=== PATIENT | male | born 1955 | race Caucasian/White ===

== ENCOUNTER 2017-01-18 08:53 | Emergency (ER) | payer OTHER ==
[~2017-01-18] VITALS: Ht 172.7 cm; Wt 73.5 kg
[~2017-01-18 08:53] MED LIST: ANTIVERT12.5 MG PO; APAP500 MG PO; BUSPIRONE HCL10 MG PO; DEC150 PO; ECO81 PO; GABAPENTIN100 M2 PO; LAC PO; LEVAQUIN750 MG PO; LISINOPRIL40 MG PO; METOPROLOL SUCC50 M1 PO; NABUMETONE750 MG PO; NORCO1 TA2 PO; PRA20 PO; SODIUM CHLORIDE1 G2 GT; TEMAZEPAM15 MG PO
[2017-01-18 09:33] LABS: BASOPHIL % 0.4 % (0-2); PLATELET COUNT 253 x10^3mcL (130-400); RED CELL DISTRIBUTION WIDTH 12.7 % (11.5-14.5)
[2017-01-18 09:54] LABS: ALBUMIN 4.1 g/dL (3.4-5.0); ALKALINE PHOSPHATASE 76 U/L (46-116); ALT/SGPT 20 U/L (16-63); AST/SGOT 10 U/L (15-37); CALCIUM 8.6 mg/dL (8.5-10.1); CARBON DIOXIDE 28.4 mmol/L (21-32); CHLORIDE SERUM 90 mmol/L (98-107); CREATININE SERUM 0.9 mg/dL (0.7-1.3); GFR1 > 60 mL/min; GLUCOSE SERUM 115 mg/dL (74-106); SODIUM SERUM 126 mmol/L (136-145); TOTAL PROTEIN, SERUM 7.6 g/dL (6.4-8.2)
[2017-01-18 09:59] LABS: POTASSIUM SERUM 2.7 mmol/L (3.5-5.1)
[2017-01-18 10:10] LABS: AMPHETAMINE QUAL UR NONE DETECTED (NEG <=1000)
[2017-01-18 15:11] LABS: CALCIUM 8.9 mg/dL (8.5-10.1); CARBON DIOXIDE 30.2 mmol/L (21-32); CHLORIDE SERUM 90 mmol/L (98-107); CREATININE SERUM 0.7 mg/dL (0.7-1.3); GFR1 > 60 mL/min; GLUCOSE SERUM 90 mg/dL (74-106); POTASSIUM SERUM 3.5 mmol/L (3.5-5.1); SODIUM SERUM 125 mmol/L (136-145)
[2017-01-18 16:26] VITALS: BP 129/90
== END 2017-01-18 16:26 | disposition home or self-care (01) ==
LOC: ED 08:53
PROVIDERS: Emergency Medicine
DX: R00.1 Bradycardia, unspecified (principal); E87.6 Hypokalemia; E87.1 Hypo-osmolality and hyponatremia; I10 Essential (primary) hypertension; F17.200 Nicotine dependence, unspecified, uncomplicated; M54.2 Cervicalgia
CPT/HCPCS: 80307; 83880

== ENCOUNTER 2017-11-09 10:26 | Inpatient (IN) | payer OTHER ==
[~2017-11-09] VITALS: Ht 172.7 cm; Wt 73.0 kg
[2017-11-09 11:28] LABS: PLATELET COUNT 207 x10^3mcL (130-400); RED CELL DISTRIBUTION WIDTH 13.2 % (11.5-14.5)
[2017-11-09 11:42] LABS: CALCIUM 8.7 mg/dL (8.5-10.1); CARBON DIOXIDE 28.1 mmol/L (21-32); CHLORIDE SERUM 96 mmol/L (98-107); CREATININE SERUM 0.9 mg/dL (0.7-1.3); GFR1 > 60 mL/min; GLUCOSE SERUM 107 mg/dL (74-106); POTASSIUM SERUM 4.5 mmol/L (3.5-5.1); SODIUM SERUM 132 mmol/L (136-145)
[2017-11-09 11:47] LABS: ALBUMIN 4.2 g/dL (3.4-5.0); ALKALINE PHOSPHATASE 59 U/L (46-116); ALT/SGPT 22 U/L (16-63); AST/SGOT 20 U/L (15-37); BILIRUBIN TOTAL 0.8 mg/dL (0.20-1.00); TOTAL PROTEIN, SERUM 7.6 g/dL (6.4-8.2)
[2017-11-09 11:51] LABS: AMPHETAMINE QUAL UR NONE DETECTED (NEG <=1000)
[2017-11-09 12:01] LABS: CK-MB 0.5 ng/mL (0-3.6)
[2017-11-09 12:14] LABS: ATYPICAL LYMPH 3 %; BAND NEUTROPHIL 1 % (0-10); BASOPHIL 0 % (0-2); MONOCYTE 4 % (0-7); SEGMENTED NEUTROPHILS 57 % (37-75)
[2017-11-09 12:15] LABS: PLATELET MORPHOLOGY PLATELETS NORMAL; rbc morphology (normal/abnorm) ABNORMAL (NORMAL)
[2017-11-09 12:59] VITALS: BP 211/99
[2017-11-09 13:10] LABS: MAGNESIUM 1.9 mg/dL (1.8-2.4); PHOSPHOROUS 3.9 mg/dL (2.5-4.9)
[2017-11-09 13:12] LABS: CHOLESTEROL/HDL RATIO 5.5
[2017-11-09 13:19] LABS: FREE T4 1.12 ng/dL (0.76-1.46); FREE THYROXINE INDEX 3.5 ug/dL (1.4-4.5); T4(THYROXINE) 10.8 ug/dL (4.7-13.3)
[2017-11-09 13:22] LABS: T3 TOTAL 1.43 ng/mL
[2017-11-09] MEDS ORDERED: HYDROCHLOROTHIA25 MG PO (13:40)
[2017-11-09 15:00] LABS: LACTIC DEHYDROGENASE (LDH) 152 U/L (100-190)
[2017-11-09 15:10] LABS: C REACTIVE PROTEIN < 0.2 mg/dL (<=0.9)
[2017-11-09 16:06] VITALS: BP 129/77; BP 149/77
[2017-11-09 18:16] LABS: microscopic required? NO
[2017-11-09 18:34] LABS: UA SPECIFIC GRAVITY <=1.005 (1.005-1.035); urine erythrocyte NEGATIVE (NEGATIVE)
[2017-11-09 22:36] VITALS: BP 117/81
[2017-11-10 06:18] LABS: BASOPHIL % 0.4 % (0-2); PLATELET COUNT 180 x10^3mcL (130-400); RED CELL DISTRIBUTION WIDTH 14.1 % (11.5-14.5)
[2017-11-10 06:33] LABS: CALCIUM 8.5 mg/dL (8.5-10.1); CARBON DIOXIDE 25.2 mmol/L (21-32); CHLORIDE SERUM 102 mmol/L (98-107); CREATININE SERUM 0.8 mg/dL (0.7-1.3); GFR1 > 60 mL/min; GLUCOSE SERUM 108 mg/dL (74-106); MAGNESIUM 1.9 mg/dL (1.8-2.4); PHOSPHOROUS 3.7 mg/dL (2.5-4.9); POTASSIUM SERUM 3.7 mmol/L (3.5-5.1); SODIUM SERUM 136 mmol/L (136-145)
[2017-11-10 07:15] VITALS: BP 148/81
[2017-11-10 10:58] VITALS: BP 192/87
[2017-11-10 18:11] VITALS: BP 180/96
[2017-11-10 19:36] VITALS: BP 182/84
[2017-11-10 20:33] VITALS: BP 167/82
[2017-11-10 21:30] VITALS: BP 168/73
[2017-11-11 06:00] VITALS: BP 125/54
[2017-11-11 06:01] VITALS: BP 158/79
[2017-11-11 07:42] LABS: CALCIUM 8.9 mg/dL (8.5-10.1); CARBON DIOXIDE 24.7 mmol/L (21-32); CHLORIDE SERUM 96 mmol/L (98-107); CREATININE SERUM 0.8 mg/dL (0.7-1.3); GFR1 > 60 mL/min; GLUCOSE SERUM 111 mg/dL (74-106); MAGNESIUM 1.7 mg/dL (1.8-2.4); PHOSPHOROUS 4.4 mg/dL (2.5-4.9); POTASSIUM SERUM 3.3 mmol/L (3.5-5.1); SODIUM SERUM 130 mmol/L (136-145)
[2017-11-11 07:49] LABS: BASOPHIL % 0.2 % (0-2); PLATELET COUNT 190 x10^3mcL (130-400)
[2017-11-11 09:49] VITALS: BP 142/78
[2017-11-11 12:41] VITALS: Ht 172.7 cm; Wt 73.0 kg
[2017-11-11 13:11] VITALS: BP 153/77
[2017-11-11] MEDS ORDERED: ISO10 PO (15:52)
[2017-11-11] MEDS ORDERED: NOR10 PO (15:53)
[2017-11-11] MEDS ORDERED: LOP50 PO (15:53)
[2017-11-11 15:55] VITALS: BP 153/79
[2017-11-11 18:14] VITALS: BP 145/78
== END 2017-11-11 18:36 | disposition home or self-care (01) | DRG 305 ==
LOC: ED 10:26 → MU 12:09 → DU 12:09 → MU 11-10 10:33 → DU 11-10 22:36
PROVIDERS: Emergency Medicine; Family Medicine
DX: I16.0 Hypertensive urgency (principal); E87.1 Hypo-osmolality and hyponatremia; D68.69 Other thrombophilia; R73.03 Prediabetes; F41.9 Anxiety disorder, unspecified; G89.29 Other chronic pain; M54.5 Low back pain; F10.21 Alcohol dependence, in remission; E78.2 Mixed hyperlipidemia; Z68.25 Body mass index [BMI] 25.0-25.9, adult; F17.210 Nicotine dependence, cigarettes, uncomplicated; Z91.013 Allergy to seafood; I10 Essential (primary) hypertension; Z82.49 Family history of ischemic heart disease and other diseases of the circulatory system; E83.42 Hypomagnesemia
CPT/HCPCS: 83880; 84439; G0480; J0360; J3490; J7030; Q0092